=== PATIENT | female | born 1990 | race American Indian/Alaskan Native ===

== ENCOUNTER 2017-12-04 14:59 | Emergency (ER) | payer OTHER ==
[2017-12-04 15:31] LABS: Amorphous Crystals,Urine Few; Bilirubin,Urine NEG (Negative); Blood,Urine NEG (Negative); Mucus,Urine 3+ /HPF; Nitrite,Urine NEG (Negative)
[2017-12-04 15:32] LABS: Color,Urine Yellow (Yellow); Protein,Urine >500 mg/dL (Negative)
[2017-12-04 15:37] LABS: HCG Qualitative,Urine Positive (Negative)
[2017-12-04] MEDS ORDERED: ZOFRAN IV ONE ×2 (16:18→21:08)
[2017-12-04] MEDS ORDERED: NACL 0.9% 1000 ML 1,000 ML IV ONE (16:19)
--- NOTE | 2017-12-04 16:22 | Emergency Department Report ---
Blank Doc - Documentation Documentation: 27-year-old female 3 para 2, presented to the ER with chief complaint of nausea vomiting and diarrhea for the last 3 days patient stated that she is not able to keep anything down. Patient also stated that she's been having vaginal spotting. Last regular period was in the beginning of October 2017. She also stated that she is having some abdominal cramping. On exam patient looks moderately dehydrated, heart sounds normal, lungs clear bilaterally, abdomen is soft nontender, no rebound tenderness or guarding. Labs, ultrasound , IV fluids, Zofran ordered.
[2017-12-04 16:48] LABS: Hematocrit 35.3 % (30.3-42.9); Mean Corpuscular HGB Conc 34 % (30-34); Mean Corpuscular Hemoglobin 27 pg (28-32); Mean Corpuscular Volume 81 fl (79-97); Platelet Count 188 K/mm3 (140-440); Red Blood Count 4.37 M/mm3 (3.65-5.03); Red Cell Distribution Width 14.1 % (13.2-15.2)
[2017-12-04 16:52] LABS: Basophils % (Auto) 0.5 % (0.0-1.8); Lymphocytes # (Auto) 0.4 K/mm3 (1.2-5.4); Lymphocytes % (Auto) 7.6 % (13.4-35.0); Monocytes # (Auto) 0.3 K/mm3 (0.0-0.8); Monocytes % (Auto) 6.4 % (0.0-7.3)
[2017-12-04 16:58] LABS: BUN/Creatinine Ratio 15; Blood Urea Nitrogen 9 mg/dL (7-17); Hemolysis Index 4
[2017-12-04 16:59] LABS: INR 1.11 (0.87-1.13)
[2017-12-04 17:00] LABS: Partial Thromboplastin Time 30.6 Sec. (24.2-36.6)
[2017-12-04] MEDS ORDERED: D5NS 1,000 ML IV SCH (19:00)
--- NOTE | 2017-12-04 19:22 | Ultrasound Report ---
FINAL REPORT PROCEDURE: US OB TRANSVAGINAL and transabdominal TECHNIQUE: Real-time transabdominal and transvaginal sonography of the uterus, placenta, amniotic fluid, adnexa, and fetus was performed with image documentation. Measurements were obtained to determine age/size. M-mode Doppler was used to document heartbeat. CPT 86708 and 21503 HISTORY: Hyperemesis COMPARISON: No prior studies are available for comparison. FINDINGS: ADDITIONAL GESTATION: None. CRL: 14.5 mm, which corresponds to a gestational age of: 5 weeks, 6 days. Yolk Sac: Normal. Embryonic Cardiac Activity: 86 beats per minute Gestational Sac: Normal. Amniotic fluid: Normal. Cervix: Normal. Right Ovary: Normal. Left Ovary: Normal. Estimated delivery date: 07/31/2018, based on crown-rump length Uterus and adnexa: Normal. IMPRESSION: 1. Single live intrauterine gestation at approximately 5 weeks, 6 days. 2. EDC by US 07/31/2018, based on crown-rump length 3. Complete anatomic survey at 18-20 weeks suggested.
--- NOTE | 2017-12-04 19:22 | Ultrasound Report ---
FINAL REPORT PROCEDURE: US OB TRANSVAGINAL and transabdominal TECHNIQUE: Real-time transabdominal and transvaginal sonography of the uterus, placenta, amniotic fluid, adnexa, and fetus was performed with image documentation. Measurements were obtained to determine age/size. M-mode Doppler was used to document heartbeat. CPT 30623 and 28491 HISTORY: Hyperemesis COMPARISON: No prior studies are available for comparison. FINDINGS: ADDITIONAL GESTATION: None. CRL: 14.5 mm, which corresponds to a gestational age of: 5 weeks, 6 days. Yolk Sac: Normal. Embryonic Cardiac Activity: 86 beats per minute Gestational Sac: Normal. Amniotic fluid: Normal. Cervix: Normal. Right Ovary: Normal. Left Ovary: Normal. Estimated delivery date: 07/31/2018, based on crown-rump length Uterus and adnexa: Normal. IMPRESSION: 1. Single live intrauterine gestation at approximately 5 weeks, 6 days. 2. EDC by US 07/31/2018, based on crown-rump length 3. Complete anatomic survey at 18-20 weeks suggested. PROCEDURE: TECHNIQUE: HISTORY: COMPARISON: FINDINGS: IMPRESSION:
--- NOTE | 2017-12-04 20:17 | Emergency Department Report ---
ED HPI - General Chief complaint: Nausea/Vomiting/Diarrhea Stated complaint: EMESIS Time Seen by Provider: 12/04/17 16:15 Source: patient Mode of arrival: Ambulatory Limitations: No Limitations - History of Present Illness Initial comments: 27-year-old female currently with LMP 10/22/2017 presents to the hospital complaining of nausea, vomiting, and decreased by mouth intake 2 days. Patient has not received care. This is her third with no previous miscarriages or abortions. Mild upper achy abdominal pain patient denies cramping, vaginal bleeding, dysuria, or fever. - Related Data Previous Rx's Medication Instructions Recorded Last Taken Type Ondansetron [Zofran Odt] 4 mg PO Q8HR PRN #20 tab.rapdis 12/04/17 Unknown Rx Allergies Allergy/AdvReac Type Severity Reaction Status Date / Time No Known Allergies Allergy Unverified 12/04/17 15:02 ED Review of Systems ROS: Stated complaint: EMESIS Other details as noted in HPI Comment: All other systems reviewed and negative Other: Constitutional: No fevers chills Eyes: No eye pain visual changes ENT: No ear pain or throat pain Neck: Denies pain Respiratory: Denies cough wheezing shortness of breath Cardiovascular: Denies chest pain, palpitations, syncope GI: As per HPI : Denies dysuria Musculoskeletal: Denies back pain, joint swelling Skin: Denies rash, lesions, erythema Neurologic: Denies headache, numbness, weakness Psychiatric: Denies suicidal ideation, hallucinations ED Past Medical Hx - Past Medical History Previous Medical History?: Yes Additional medical history: Vaginal dleivery x 2 - Surgical History Past Surgical History?: No - Social History Smoking Status: Current Some Day Smoker Substance Use Type: Alcohol, Marijuana - Medications Home Medications: Home Medications Medication Instructions Recorded Confirmed Last Taken Type Ondansetron [Zofran Odt] 4 mg PO Q8HR PRN #20 tab.rapdis 12/04/17 Unknown Rx ED Physical Exam - General Limitations: No Limitations - Other Other exam information: General: No limitations, patient is alert in no acute distress Head exam: Atraumatic, normocephalic Eyes exam: Normal appearance ENT: Dried mucus number Neck exam: Normal inspection, full range of motion, no meningismus nontender Respiratory exam: Clear to auscultation bilateral, no wheezes, rales, crackles Cardiovascular: Normal rate and rhythm, normal heart sounds Abdomen: Soft, nondistended, and nontender, with normal bowel sounds, no rebound, or guarding Extremity: Full range of motion normal inspection no deformity Back: Normal Inspection, full range of motion, no tenderness Neurologic: Alert, oriented x3, cranial nerves intact, no motor or sensory deficit Psychiatric: normal affect, normal mood Skin: Warm, dry, intact ED Course Vital Signs 12/04/17 12/04/17 12/04/17 15:03 17:38 20:49 Temperature 97.8 F Pulse Rate 73 71 Respiratory 20 16 18 Rate Blood Pressure 119/65 Blood Pressure 114/64 [Left] O2 Sat by Pulse 100 100 Oximetry ED Medical Decision Making - Lab Data Result diagrams: 12/04/17 16:23 12/04/17 16:23 Lab Results 12/04/17 12/04/17 12/04/17 Range/Units 15:18 16:23 16:23 WBC 5.5 (4.5-11.0) K/mm3 RBC 4.37 (3.65-5.03) M/mm3 Hgb 12.0 (10.1-14.3) gm/dl Hct 35.3 (30.3-42.9) % MCV 81 (79-97) fl MCH 27 L (28-32) pg MCHC 34 (30-34) % RDW 14.1 (13.2-15.2) % Plt Count 188 (140-440) K/mm3 Lymph % (Auto) 7.6 L (13.4-35.0) % [place] % (Auto) 6.4 (0.0-7.3) % Eos % (Auto) 0.0 (0.0-4.3) % Baso % (Auto) 0.5 (0.0-1.8) % Lymph # 0.4 L (1.2-5.4) K/mm3 [place] # 0.3 (0.0-0.8) K/mm3 Eos # 0.0 (0.0-0.4) K/mm3 Baso # 0.0 (0.0-0.1) K/mm3 Seg Neutrophils % 85.5 H (40.0-70.0) % Seg Neutrophils # 4.6 (1.8-7.7) K/mm3 PT 14.9 (12.2-14.9) Sec. INR 1.11 (0.87-1.13) APTT 30.6 (24.2-36.6) Sec. Sodium (137-145) mmol/L Potassium (3.6-5.0) mmol/L Chloride (98-107) mmol/L Carbon Dioxide (22-30) mmol/L Anion Gap mmol/L BUN (7-17) mg/dL Creatinine (0.7-1.2) mg/dL Estimated GFR ml/min BUN/Creatinine Ratio % Glucose (65-100) mg/dL Calcium (8.4-10.2) mg/dL HCG, Quant (0-4) mIU/mL Urine Color Yellow (Yellow) Urine Turbidity Hazy (Clear) Urine pH 6.0 (5.0-7.0) Ur Specific Man 1.029 (1.003-1.030) Urine Protein >500 (Negative) mg/dL Urine Glucose (UA) Neg (Negative) mg/dL Urine Ketones 20 (Negative) mg/dL Urine Blood Neg (Negative) Urine Nitrite Neg (Negative) Urine Bilirubin Neg (Negative) Urine Urobilinogen 2.0 (<2.0) mg/dL Ur Leukocyte Esterase Neg (Negative) Urine WBC (Auto) 4.0 (0.0-6.0) /HPF Urine RBC (Auto) 2.0 (0.0-6.0) /HPF U Epithel Cells (Auto) 6.0 (0-13.0) /HPF Amorphous Crystals Few Urine Mucus 3+ /HPF Urine HCG, Qual Positive A (Negative) Blood Type 12/04/17 12/04/17 12/04/17 Range/Units 16:23 16:23 16:23 WBC (4.5-11.0) K/mm3 RBC (3.65-5.03) M/mm3 Hgb (10.1-14.3) gm/dl Hct (30.3-42.9) % MCV (79-97) fl MCH (28-32) pg MCHC (30-34) % RDW (13.2-15.2) % Plt Count (140-440) K/mm3 Lymph % (Auto) (13.4-35.0) % [place] % (Auto) (0.0-7.3) % Eos % (Auto) (0.0-4.3) % Baso % (Auto) (0.0-1.8) % Lymph # (1.2-5.4) K/mm3 [place] # (0.0-0.8) K/mm3 Eos # (0.0-0.4) K/mm3 Baso # (0.0-0.1) K/mm3 Seg Neutrophils % (40.0-70.0) % Seg Neutrophils # (1.8-7.7) K/mm3 PT (12.2-14.9) Sec. INR (0.87-1.13) APTT (24.2-36.6) Sec. Sodium 138 (137-145) mmol/L Potassium 3.8 (3.6-5.0) mmol/L Chloride 98.7 (98-107) mmol/L Carbon Dioxide 23 (22-30) mmol/L Anion Gap 20 mmol/L BUN 9 (7-17) mg/dL Creatinine 0.6 L (0.7-1.2) mg/dL Estimated GFR > 60 ml/min BUN/Creatinine Ratio 15 % Glucose 87 (65-100) mg/dL Calcium 9.0 (8.4-10.2) mg/dL HCG, Quant 59424 H (0-4) mIU/mL Urine Color (Yellow) Urine Turbidity (Clear) Urine pH (5.0-7.0) Ur Specific [place] (1.003-1.030) Urine Protein (Negative) mg/dL Urine Glucose (UA) (Negative) mg/dL Urine Ketones (Negative) mg/dL Urine Blood (Negative) Urine Nitrite (Negative) Urine Bilirubin (Negative) Urine Urobilinogen (<2.0) mg/dL Ur Leukocyte Esterase (Negative) Urine WBC (Auto) (0.0-6.0) /HPF Urine RBC (Auto) (0.0-6.0) /HPF U Epithel Cells (Auto) (0-13.0) /HPF Amorphous Crystals Urine Mucus /HPF Urine HCG, Qual (Negative) Blood Type A POSITIVE - Radiology Data Radiology results: report reviewed /transvaginal ultrasound: 5 week 6 day IUP heart tones 86 - Medical Decision Making Nausea vomiting in Controlled in the ED with Zofran Patient received 1 L normal saline and 1 L D5NS as for hydration Symptoms improved and controlled prior to discharge - Differential Diagnosis hyperemesis, dehydration, UTI Critical care attestation.: If time is entered above; I have spent that time in minutes in the direct care of this critically ill patient, excluding procedure time. ED Disposition Clinical Impression: Nausea and vomiting during , 5 weeks gestation of Disposition: TO HOME OR SELFCARE Is pt being admited?: No Does the pt Need Aspirin: No Condition: Stable Instructions: Hyperemesis Gravidarum (ED) Additional Instructions: Ultrasound confirms you are 5 weeks and 6 days . Take nausea medication as needed in the vitamins daily. Follow-up with the PUBLICITY AGENT doctor provided with the PUBLICITY AGENT doctor of your choice. Prescriptions: Ondansetron [Zofran Odt] 4 mg PO Q8HR PRN #20 tab.rapdis PRN Reason: Nausea And Vomiting Referrals: JONO TAN MD [Staff Physician] - 3-5 Days Time of Disposition: 22:05
[2017-12-04 20:50] VITALS: BP 114/64
[2017-12-04] MEDS ORDERED: ZOFRAN ONE (20:52)
== END 2017-12-04 22:28 | disposition home or self-care (01) ==
LOC: ED 14:59
DX: O21.9 Vomiting of pregnancy, unspecified (principal); F17.200 Nicotine dependence, unspecified, uncomplicated; F12.10 Cannabis abuse, uncomplicated; Z3A.01 Less than 8 weeks gestation of pregnancy
CPT/HCPCS: 36415; 76801; 76817; 80048; 81001; 81025; 84702; 85025; 85610; 85730; 86900; 86901; 96361; 96374; 96376; 99284; J2405; J7030; J7042

== ENCOUNTER 2017-12-09 09:31 | Inpatient (IN) | payer OTHER ==
[2017-12-09 10:31] LABS: Basophils % (Auto) 0.9 % (0.0-1.8); Eosinophils % (Auto) 0.3 % (0.0-4.3); Hematocrit 35.5 % (30.3-42.9); Hemoglobin 12.6 gm/dl (10.1-14.3); Lymphocytes # (Auto) 0.6 K/mm3 (1.2-5.4); Lymphocytes % (Auto) 17.4 % (13.4-35.0); Mean Corpuscular HGB Conc 35 % (30-34); Mean Corpuscular Hemoglobin 28 pg (28-32); Mean Corpuscular Volume 79 fl (79-97); Monocytes # (Auto) 0.6 K/mm3 (0.0-0.8); Monocytes % (Auto) 15.7 % (0.0-7.3); Platelet Count 170 K/mm3 (140-440); Red Blood Count 4.49 M/mm3 (3.65-5.03); Red Cell Distribution Width 13.5 % (13.2-15.2)
[2017-12-09 10:45] LABS: Alanine Aminotransferase 8 units/L (7-56); Albumin 4.5 g/dL (3.9-5); BUN/Creatinine Ratio 17; Blood Urea Nitrogen 10 mg/dL (7-17); Hemolysis Index 1
[2017-12-09] MEDS ORDERED: ZOFRAN IV ONE ×2 (12:15→13:20)
[2017-12-09] MEDS ORDERED: NACL 0.9% 1000 ML 1,000 ML IV ONE (12:15)
[2017-12-09] MEDS ORDERED: KCL 10MEQ/100ML 10 MEQ/100 ML BAG IV ONE (12:16)
[2017-12-09] MEDS ORDERED: NACL 0.9% 1000 ML 1,000 ML ONE (12:17)
[2017-12-09] MEDS ORDERED: ZOFRAN ONE (12:17)
[2017-12-09] MEDS ORDERED: KCL 10 MEQ in NACL 0.9% 100 ML IV ONE (12:45)
[2017-12-09] MEDS ORDERED: BENADRYL IV ONE (13:26)
[2017-12-09] MEDS ORDERED: D5NS 1,000 ML IV ONE (13:29)
--- NOTE | 2017-12-09 13:29 | Emergency Department Report ---
ED N/V/D HPI - General Chief complaint: Nausea/Vomiting/Diarrhea Stated complaint: N&V WITH CP Time Seen by Provider: 12/09/17 12:12 Source: patient Mode of arrival: Ambulatory Limitations: No Limitations - History of Present Illness Initial comments: This is a 27-year-old female nontoxic, well nourished in appearance, no acute signs of distress presents to the ED with c/o of nausea and vomiting x1 week. Patient stated she was here on 12/04/2017 and was diagnosed with 5 weeks normal and nausea/vomiting and was prescribed Zofran with no refill. Patient stated that every time she vomits she gets chest aching. Patient denies any fever, chills, headache, stiff neck, nausea, vomiting, chest pain, shortness of breathe, numbness, tingling. Patient denies any vaginal bleeding or discharge. Patient denies any allergies or PMH. MD complaint: nausea, vomiting -: week(s) (1) Description of Vomiting: food contents Associated Abdominal Pain: No Radiation: none Severity: mild Consistency: constant Improves with: none Worsens with: none Associated Symptoms: denies other symptoms. denies: myalgias, chest pain, cough , diaphoresis, fever/chills, headaches, loss of appetite, malaise, nausea/ vomiting, rash, dysuria, shortness of breath, syncope, weakness - Related Data Previous Rx's Medication Instructions Recorded Last Taken Type Ondansetron [Zofran Odt] 4 mg PO Q8HR PRN #20 tab.rapdis 12/04/17 Unknown Rx Vit-Fe Fumar-FA [ 1 tab PO QDAY #30 tablet 12/04/17 Unknown Rx Vitamin] Allergies Allergy/AdvReac Type Severity Reaction Status Date / Time No Known Allergies Allergy Unverified 12/04/17 15:02 ED Review of Systems ROS: Stated complaint: N&V WITH CP Other details as noted in HPI Constitutional: denies: chills, fever Eyes: denies: eye pain, eye discharge, vision change ENT: denies: ear pain, throat pain Respiratory: denies: cough, shortness of breath, wheezing Cardiovascular: denies: chest pain, palpitations Endocrine: no symptoms reported Gastrointestinal: nausea, vomiting. denies: abdominal pain, diarrhea Genitourinary: denies: urgency, dysuria, discharge Musculoskeletal: denies: back pain, joint swelling, arthralgia Skin: denies: rash, lesions Neurological: denies: headache, weakness, paresthesias Psychiatric: denies: anxiety, depression Hematological/Lymphatic: denies: easy bleeding, easy bruising ED Past Medical Hx - Past Medical History Previous Medical History?: Yes Additional medical history: Vaginal dleivery x 2 - Surgical History Past Surgical History?: No - Social History Smoking Status: Former Smoker Substance Use Type: Alcohol, Prescribed - Medications Home Medications: Home Medications Medication Instructions Recorded Confirmed Last Taken Type Ondansetron [Zofran Odt] 4 mg PO Q8HR PRN #20 tab.rapdis 12/04/17 Unknown Rx Vit-Fe Fumar-FA [ 1 tab PO QDAY #30 tablet 12/04/17 Unknown Rx Vitamin] ED Physical Exam - General Limitations: No Limitations General appearance: alert, in no apparent distress - Head Head exam: Present: atraumatic, normocephalic - Eye Eye exam: Present: normal appearance, PERRL, EOMI Pupils: Present: normal accommodation - ENT ENT exam: Present: mucous membranes moist - Neck Neck exam: Present: normal inspection, full ROM. Absent: tenderness, meningismus, lymphadenopathy, thyromegaly - Respiratory Respiratory exam: Present: normal lung sounds bilaterally. Absent: respiratory distress, wheezes, rales, rhonchi, stridor, chest wall tenderness, accessory muscle use, decreased breath sounds, prolonged expiratory - Cardiovascular Cardiovascular Exam: Present: regular rate, normal rhythm, normal heart sounds. Absent: bradycardia, tachycardia, irregular rhythm, systolic murmur, diastolic murmur, rubs, gallop - GI/Abdominal GI/Abdominal exam: Present: soft, normal bowel sounds. Absent: distended, tenderness, guarding, rebound, rigid, diminished bowel sounds - Expanded GI/Abdominal Exam Expanded GI/Abdominal exam: Absent: psoas sign, obturator sign, heel tap sign, Oakes's sign, Rovsing's sign, tenderness at [place]'s [place], ascites - Rectal Rectal exam: Present: deferred - Extremities Exam Extremities exam: Present: normal inspection, full ROM, normal capillary refill. Absent: tenderness, pedal edema, joint swelling, calf tenderness - Back Exam Back exam: Present: normal inspection, full ROM. Absent: tenderness, CVA tenderness (R), CVA tenderness (L), muscle spasm, paraspinal tenderness, vertebral tenderness, rash noted - Neurological Exam Neurological exam: Present: alert, oriented X3, CN II-XII intact, normal gait, reflexes normal - Psychiatric Psychiatric exam: Present: normal affect, normal mood - Skin Skin exam: Present: warm, dry, intact, normal color. Absent: rash ED Course Vital Signs 12/09/17 10:03 Temperature 97.9 F Pulse Rate 67 Respiratory 16 Rate Blood Pressure 118/67 O2 Sat by Pulse 100 Oximetry - Reevaluation(s) Reevaluation #1: 12/09/17 13:41 Patient is speaking in full sentences with no signs of distress noted. - Consultations Consultation #1: 12/09/17 13:41 Patient has been consulted with Dr. Prieto about patient history, physical exam, and labs and agrees to ED plan of care and with possible admission for unrelieved nausea/vomiting. Consultation #2: 12/09/17 14:24 Dr. Gilliam (My outboard technician) was conulsted about patient history, physical exam, and lab and accepts patient to his services. ED Medical Decision Making - Lab Data Result diagrams: 12/09/17 10:14 12/09/17 10:14 - Medical Decision Making This is a 27-year-old female that presents with hyperemesis gravidarum and UTI. Patient is stable and was examined by me. Patient is currently about 7 weeks . Patient received 1 L normal saline, D5 NS 1 liter, Zofran 8 mg IV, and Benadryl 25 mg IV with no relief. Patient denies any abdominal pain or distention. Abdominal assessment is normal soft and nontender. No abdominal distention. Patient was consulted with Dr. Prieto and Dr. Gilliam. Dr. Gilliam except the patient to her services. Patient received 1 g of Rocephin IV. Pending urine culture. At time of admission the patient does not seem toxic or ill in appearance. No acute signs of distress noted. Patient agrees to admission treatment plan of care. No further questions noted by the patient. Critical care attestation.: If time is entered above; I have spent that time in minutes in the direct care of this critically ill patient, excluding procedure time. ED Disposition Clinical Impression: Hyperemesis gravidarum UTI (urinary tract infection) Qualifiers: Urinary tract infection type: site unspecified Hematuria presence: with hematuria Qualified Code(s): N39.0 - Urinary tract infection, site not specified ; R31.9 - Hematuria, unspecified; R31.9 - Hematuria, unspecified Disposition: OP ADMIT IP TO THIS HOSP Is pt being admited?: Yes Condition: Stable Referrals: PRIMARY CARE,MD [Primary Care Provider] - 3-5 Days
[2017-12-09 13:58] LABS: Bacteria,Urine 4+ /HPF (Negative); Bilirubin,Urine NEG (Negative); Blood,Urine NEG (Negative); Color,Urine Yellow (Yellow); Mucus,Urine 3+ /HPF; Nitrite,Urine POS (Negative)
[2017-12-09] MEDS ORDERED: ROCEPHIN/NS 1 GM/50 ML 1 GM/50 ML BAG IV ONE (14:16)
[2017-12-09] MEDS ORDERED: KCL 20 MEQ in NACL 0.9% 250ML 250 ML IV SCH (15:00)
[2017-12-09] MEDS ORDERED: KCL 10MEQ/100ML 10 MEQ/100 ML BAG IV SCH (15:00)
[2017-12-09] MEDS ORDERED: cefTRIAXone 1 GM in NACL 0.9% 20 ML IV ONE (15:00)
[2017-12-09 15:44] LABS: BUN/Creatinine Ratio 18; Blood Urea Nitrogen 9 mg/dL (7-17); Calcium 8.4 mg/dL (8.4-10.2); Hemolysis Index 7
--- NOTE | 2017-12-09 15:49 | History and Physical Report ---
History of Present Illness Date of examination: 12/09/17 Date of admission: 12/09/17 14:23 Chief complaint: 27 yo at 7 wk 5d with EDC of 07/23/2018 given by a clinic but no care yet. Having severe N&V and associated chest pain that sounds like reflux to me. Admitted through ER and is very dehydrated, hypokalemic and is in pain from the probable esophagitis. History of present illness: Several weeks of severe N&V not able to keep anything down at all with chest pain from retching. Past History Past Medical History: other (non- blood transfusion after 1st delivery) Past Surgical History: no surgical history Family/Genetic History: none Social history: lives with family. denies: smoking, alcohol abuse, prescription drug abuse, IV drug use - Obstetrical History Expected Date of Delivery: 07/23/18 Actual Gestation: 7 Week(s) 5 Day(s) : 3 Para: 2 Hx # Term Pregnancies: 2 Number of Living Children: 2 Medications and Allergies Allergies Allergy/AdvReac Type Severity Reaction Status Date / Time No Known Allergies Allergy Unverified 12/04/17 15:02 Home Medications Medication Instructions Recorded Confirmed Last Taken Type Ondansetron [Zofran Odt] 4 mg PO Q8HR PRN #20 tab.rapdis 12/04/17 Unknown Rx Vit-Fe Fumar-FA [ 1 tab PO QDAY #30 tablet 12/04/17 Unknown Rx Vitamin] Active Meds: Active Medications Dextrose/Sodium Chloride (D5ns) 1,000 mls @ 150 mls/hr IV DIRECT ONE Stop: 12/09/17 20:08 Last Admin: 12/09/17 14:27 Dose: 150 mls/hr Dextrose/Lactated Ringer's (D5lr) 1,000 mls @ 500 mls/hr IV DIRECT TIFFANY Stop: 12/10/17 16:59 Dextrose/Lactated Ringer's (D5lr) 1,000 mls @ 150 mls/hr IV DIRECT TIFFANY Potassium Chloride 20 meq/ (Sodium Chloride) 260 mls @ 130 mls/hr IV ONCE.ED TIFFANY Multivitamins/Iron/Calcium ( Vitamin) 1 each PO QDAY TIFFANY Ondansetron HCl (Zofran) 4 mg IV Q6H PRN PRN Reason: N/V unrelieved by Reglan Promethazine HCl (Phenergan) 25 mg TN Q6H TIFFANY - Vital Signs Vital signs: Vital Signs Temp Pulse Resp BP Pulse Ox 97.9 F 67 16 118/67 100 12/09/17 10:03 12/09/17 10:03 12/09/17 10:03 12/09/17 10:03 12/09/17 10:03 Temp Pulse Resp BP Pulse Ox 97.9 F 57 L 18 127/79 99 12/09/17 10:03 12/09/17 15:06 12/09/17 15:06 12/09/17 15:06 12/09/17 15:06 - Physical Exam Breasts: Positive: deferred Cardiovascular: Regular rate Lungs: Positive: Clear to auscultation Abdomen: Positive: soft Extremities: Positive: normal Results Result Diagrams: 12/09/17 10:14 12/09/17 14:48 Abnormal lab results 12/09/17 12/09/17 12/09/17 Range/Units 10:14 10:14 13:38 WBC 3.6 L (4.5-11.0) K/mm3 MCHC 35 H (30-34) % [place] % (Auto) 15.7 H (0.0-7.3) % Lymph # 0.6 L (1.2-5.4) K/mm3 Sodium 136 L (137-145) mmol/L Potassium 3.2 L (3.6-5.0) mmol/L Chloride 96.2 L (98-107) mmol/L Carbon Dioxide 20 L (22-30) mmol/L Creatinine 0.6 L (0.7-1.2) mg/dL Alkaline Phosphatase 33 L (35-129) units/L Ur Specific [place] 1.033 H (1.003-1.030) 12/09/17 Range/Units 14:48 WBC (4.5-11.0) K/mm3 MCHC (30-34) % [place] % (Auto) (0.0-7.3) % Lymph # (1.2-5.4) K/mm3 Sodium (137-145) mmol/L Potassium (3.6-5.0) mmol/L Chloride (98-107) mmol/L Carbon Dioxide 18 L (22-30) mmol/L Creatinine 0.5 L (0.7-1.2) mg/dL Alkaline Phosphatase (35-129) units/L Ur Specific [place] (1.003-1.030) All other labs normal. Assessment and Plan - Patient Problems (1) Hyperemesis gravidarum to 22 weeks gestation, electrolyte imbalance Current Visit: Yes Status: Acute Plan to address problem: rehydrate, treat sx (2) Esophagitis Current Visit: Yes Status: Acute (3) 7 weeks gestation of Current Visit: Yes Status: Acute (4) UTI (urinary tract infection) Current Visit: Yes Status: Acute Qualifiers: Urinary tract infection type: site unspecified Hematuria presence: with hematuria Qualified Code(s): N39.0 - Urinary tract infection, site not specified; R31.9 - Hematuria, unspecified; R31.9 - Hematuria, unspecified Plan to address problem: i doubt this but will continue AB started by ER until culture
[2017-12-09] MEDS: PHENERGAN PR SCH ×2 (16:48→21:00)
[2017-12-09] MEDS ORDERED: FOLVITE 1 MG, INFUVITE 10 ML in NACL 0.9% 1000 ML 1,000 ML IV ONE (16:56)
[2017-12-09] MEDS: REGLAN IV PRN (17:52)
[2017-12-09] MEDS ORDERED: BICITRA PO ONE (18:00)
[2017-12-09] MEDS: D5LR 1,000 ML IV SCH (19:54)
[2017-12-09] MEDS: ZOFRAN IV PRN (20:14)
[2017-12-10] MEDS: PHENERGAN PR SCH ×5 (01:57→20:40)
[2017-12-10] MEDS: REGLAN IV PRN ×3 (03:38→20:40)
[2017-12-10] MEDS: D5LR 1,000 ML IV SCH ×2 (06:01→11:58)
--- NOTE | 2017-12-10 07:40 | Progress Note ---
Assessment and Plan - Patient Problems (1) Esophagitis Onset Date: ~12/09/17 Current Visit: Yes Status: Acute Plan to address problem: Continue meds as ordered Adv diet as tolerated. Dietary consult ordered (2) Hyperemesis gravidarum Onset Date: ~12/09/17 Current Visit: Yes Status: Acute Plan to address problem: Adv diet as tolerated (3) UTI (urinary tract infection) Onset Date: ~12/09/17 Current Visit: Yes Status: Acute Qualifiers: Urinary tract infection type: site unspecified Hematuria presence: with hematuria Qualified Code(s): N39.0 - Urinary tract infection, site not specified; R31.9 - Hematuria, unspecified; R31.9 - Hematuria, unspecified Plan to address problem: Macrobid po ordered. Will start if pt can tolerate po fluids Subjective - Subjective Date of service: 12/10/17 (pt states she is feeling better) Principal diagnosis: first trimester N&V; UTI; GERD Objective - Vital Signs Latest vital signs: Vital Signs Temp Pulse Resp BP BP Pulse Ox 12/10/17 05:33 99.1 F 66 18 114/64 100 12/10/17 00:41 99.1 F 71 20 115/72 99 12/09/17 21:37 98.5 F 62 20 102/69 100 12/09/17 15:06 57 L 18 127/79 99 12/09/17 10:03 97.9 F 67 16 118/67 100 Intake and Output 12/09/17 12/10/17 12/10/17 22:59 06:59 14:59 Intake Total 100 Output Total 100 Balance 0 Intake: Intake, Free Water 100 Output: Urine 100 Void 100 Other: Total, Output Amount 100 Voiding Method Toilet Weight 150 lb 161 lb - Exam Breasts: Present: deferred Abdomen: Present: normal appearance, soft, normal bowel sounds Uterus: Present: normal Extremities: Present: normal Deep Tendon Reflex Grade: Normal +2 - Labs Labs: Abnormal lab results 12/09/17 12/09/17 12/09/17 Range/Units 10:14 10:14 13:38 WBC 3.6 L (4.5-11.0) K/mm3 MCHC 35 H (30-34) % [place] % (Auto) 15.7 H (0.0-7.3) % Lymph # 0.6 L (1.2-5.4) K/mm3 Sodium 136 L (137-145) mmol/L Potassium 3.2 L (3.6-5.0) mmol/L Chloride 96.2 L (98-107) mmol/L Carbon Dioxide 20 L (22-30) mmol/L Creatinine 0.6 L (0.7-1.2) mg/dL Alkaline Phosphatase 33 L (35-129) units/L Ur Specific [place] 1.033 H (1.003-1.030) 12/09/17 Range/Units 14:48 WBC (4.5-11.0) K/mm3 MCHC (30-34) % [place] % (Auto) (0.0-7.3) % Lymph # (1.2-5.4) K/mm3 Sodium (137-145) mmol/L Potassium (3.6-5.0) mmol/L Chloride (98-107) mmol/L Carbon Dioxide 18 L (22-30) mmol/L Creatinine 0.5 L (0.7-1.2) mg/dL Alkaline Phosphatase (35-129) units/L Ur Specific [place] (1.003-1.030)
[2017-12-10] MEDS ORDERED: PRENATAL VITAMIN PO SCH (10:00)
[2017-12-10] MEDS: ZOFRAN IV PRN ×3 (10:10→22:25)
[2017-12-10] MEDS: MACROBID PO SCH ×2 (10:15→22:26)
[2017-12-10] MEDS: PROTONIX PO SCH ×2 (11:55→12:08)
[2017-12-11] MEDS: REGLAN IV PRN (02:02)
[2017-12-11] MEDS: D5LR 1,000 ML IV SCH ×2 (02:04→08:58)
[2017-12-11] MEDS: PHENERGAN PR SCH ×2 (03:19→12:00)
[2017-12-11] MEDS: ZOFRAN IV PRN ×2 (03:25→09:51)
--- NOTE | 2017-12-11 07:31 | Progress Note ---
Assessment and Plan - Patient Problems (1) Hyperemesis gravidarum Onset Date: ~12/09/17 Current Visit: Yes Status: Acute Plan to address problem: Discussed with pt out pt therapy She was concerned because she has not been able to eat. Will confirm that dietary is to see pt, consult was written . Also explained to pt she needs to establish care with a practice. She did ask for our number and address. Macrobid po tolerated. Will continue to observe and re-eval. is aware of pt. Subjective - Subjective Date of service: 12/11/17 (pt A&O; c/o vomiting X 1 last evening) Principal diagnosis: first trimester N&V; UTI; GERD Patient reports: voiding normally, other (pt is taking po hydration) Objective - Vital Signs Latest vital signs: Vital Signs Temp Pulse Resp BP Pulse Ox 12/11/17 04:00 98.7 F 78 18 114/66 12/11/17 00:00 98.7 F 66 18 121/68 12/10/17 20:00 98.9 F 63 16 139/86 12/10/17 08:30 98.9 F 72 18 125/68 99 Intake and Output 12/10/17 12/11/17 12/11/17 22:59 06:59 14:59 Intake Total 200 Output Total 1200 700 Balance -1000 -700 Intake: Intake, Free Water 200 Output: Urine 900 700 Void 900 700 Emesis 300 Other: Total, Output Amount 400 700 Voiding Method Toilet # Voids Void 1 1 Weight 360 lb 7.292 oz - Exam Breasts: Present: deferred Cardiovascular: Present: Regular rate Lungs: Present: Clear to auscultation Abdomen: Present: normal appearance, soft Extremities: Present: normal Deep Tendon Reflex Grade: Normal +2
[2017-12-11] MEDS: PROTONIX PO SCH (09:51)
[2017-12-11] MEDS: MACROBID PO SCH (10:09)
[2017-12-11 12:52] VITALS: BP 122/80
--- NOTE | 2017-12-11 14:05 | Discharge Summary ---
Providers - Providers Date of Admission: 12/09/17 14:23 Date of discharge: 12/11/17 Attending physician: RADHA ALMANZA 12/09/17 14:24 Consult to Dietitian/Nutrition [CONS] Routine Physician Instructions: Reason For Exam: Reason for Consult: hyper grav Reason for Consult: Poor oral intake Primary care physician: TRAVEL CLERK Hospitalization Condition: Good Procedures: IVF hydration, antiemetic therapy Hospital course: Patient was admitted for N/V, she received IVF hydration, antiemetic therapy. Her urine ketones cleared, then hypokalemia resolved and she gained weight during the hospitalization. She has pytalism now. Will allow home with instructions. Patient voiced understanding and agrees with plan of care. Disposition: - TO HOME OR SELFCARE - Discharge Diagnoses (1) Ptyalism Status: Acute (2) 7 weeks gestation of Status: Acute (3) Esophagitis Status: Acute (4) Hyperemesis gravidarum Status: Acute (5) UTI (urinary tract infection) Status: Acute Qualifiers: Urinary tract infection type: acute cystitis Hematuria presence: with hematuria Qualified Code(s): N30.01 - Acute cystitis with hematuria Core Measure Documentation - Palliative Care Palliative Care/ Comfort Measures: Not Applicable - Core Measures Any of the following diagnoses?: none Exam - Constitutional Vitals: Temp Pulse Resp BP Pulse Ox 98.5 F 67 18 122/80 100 12/11/17 11:13 12/11/17 11:13 12/11/17 11:13 12/11/17 11:13 12/11/17 11:13 Plan Activity: other (No sex.) Diet: clear liquids (Clear liquids for 24hours, then increase to soft diet, no dairy, no spicy foods, eat small meals frequently) Additional Instructions: Insert Promethazine suppository 1hour prior to taking your antibiotic. Drink ~74 oz of ice water a day, may put gatorade or renzo blake etc in your water. No alcoholic beverages. Follow up with: MILLI LOPEZ MD [Staff Physician] - 7 Days Prescriptions: Famotidine [Pepcid] 20 mg PO BID #30 tablet Nitrofurantoin Monohyd/M-Cryst [Macrobid 100 mg Capsule] 100 mg PO BID 7 Days # 14 capsule Ondansetron [Zofran TAB] 8 mg PO Q8HR PRN #20 tablet PRN Reason: Nausea Promethazine [Phenergan SUPPOS] 25 mg [place] QHS PRN #20 supp.rect PRN Reason: Nausea
== END 2017-12-11 14:45 | disposition home or self-care (01) | DRG 781 ==
LOC: ED 09:31 → OB 14:23
PROVIDERS: ADMIT Obstetrics & Gynecology; ATTEND Obstetrics & Gynecology
DX: O23.41 Unspecified infection of urinary tract in pregnancy, first trimester (principal); O99.611 Diseases of the digestive system complicating pregnancy, first trimester; O21.0 Mild hyperemesis gravidarum; K11.7 Disturbances of salivary secretion
CPT/HCPCS: 36415; 80048; 80053; 81001; 82010; 84443; 85025; 87076; 87086; 87186; 93005; 93010; 96365; 96375; 96376; J0696; J1200; J2405; J2765; J3411; J3480; J7030; J7042; J7050; J7121

== ENCOUNTER 2018-11-18 03:22 | Inpatient (IN) | payer SELFPAY ==
[2018-11-18 03:50] LABS: Basophils % (Auto) 0.7 % (0.0-1.8); Hemoglobin 12.3 gm/dl (10.1-14.3); Lymphocytes # (Auto) 0.7 K/mm3 (1.2-5.4); Lymphocytes % (Auto) 17.8 % (13.4-35.0); Mean Corpuscular HGB Conc 35 % (30-34); Mean Corpuscular Volume 81 fl (79-97); Monocytes # (Auto) 0.4 K/mm3 (0.0-0.8); Monocytes % (Auto) 10.1 % (0.0-7.3); Platelet Count 179 K/mm3 (140-440); Red Blood Count 4.34 M/mm3 (3.65-5.03); Red Cell Distribution Width 13.4 % (13.2-15.2)
[2018-11-18 04:07] LABS: BUN/Creatinine Ratio 20; Blood Urea Nitrogen 10 mg/dL (7-17); Calcium 9.1 mg/dL (8.4-10.2); Hemolysis Index 3
[2018-11-18] MEDS ORDERED: ZOFRAN IV ONE (06:51)
[2018-11-18] MEDS ORDERED: MORPHINE IV ONE (06:52)
[2018-11-18] MEDS ORDERED: NACL 0.9% 1000 ML 1,000 ML IV ONE ×2 (06:52→08:52)
--- NOTE | 2018-11-18 06:54 | Emergency Department Report ---
HPI - General Chief Complaint: Abdominal Pain Time Seen by Provider: 11/18/18 06:31 - HPI HPI: 28-year-old female presents to the emergency department with complaint of generalized abdominal pain, nausea and vomiting while . The patient just found out she was 2 days ago when she presented for the same symptoms. At that time she had an ultrasound and found her to be 6 weeks and 1 day. Patient says that she just moved to the area and does not have insurance and therefore does not have any [facility]. With this she is with 2 children and 2 previous abortions. She was discharged home with some Zofran but says that has not been working. She otherwise denies any other past medical history and denies any past surgical history. She denies any dysuria or vaginal bleeding or vaginal discharge. ED Past Medical Hx - Past Medical History Previous Medical History?: Yes Hx HIV: No Additional medical history: Vaginal dleivery x 2 - Surgical History Past Surgical History?: No - Social History Smoking Status: Current Every Day Smoker Substance Use Type: None - Medications Home Medications: Home Medications Medication Instructions Recorded Confirmed Last Taken Type Ondansetron [Zofran Odt] 4 mg PO Q8HR PRN #10 tab.rapdis 11/16/18 11/18/18 Unknown Rx Promethazine [Phenergan TAB] 25 mg PO Q6HR PRN #10 tab 11/16/18 11/18/18 Unknown Rx ED Review of Systems ROS: Stated complaint: ABD PAIN Other details as noted in HPI Comment: All other systems reviewed and negative Constitutional: denies: chills, fever Eyes: denies: eye pain, vision change ENT: denies: ear pain, throat pain Respiratory: denies: cough, shortness of breath Cardiovascular: denies: chest pain, palpitations Gastrointestinal: abdominal pain, nausea, vomiting Genitourinary: denies: dysuria, discharge Musculoskeletal: denies: back pain, arthralgia Skin: denies: rash, lesions Neurological: denies: headache, weakness Physical Exam - Physical Exam Vital Signs: Vital Signs 11/18/18 11/18/18 03:30 06:22 Temperature 99.2 F 99.7 F H Pulse Rate 78 85 Respiratory 18 16 Rate Blood Pressure 130/80 Blood Pressure 133/76 [Left] O2 Sat by Pulse 99 99 Oximetry Physical Exam: GENERAL: The patient is well-developed well-nourished. HEENT: Normocephalic. Atraumatic. Patient has moist mucous membranes. EYES: Extraocular motions are intact. NECK: Supple. Trachea is midline. CHEST/LUNGS: Clear to auscultation. There is no respiratory distress noted. HEART/CARDIOVASCULAR: Regular. There is no tachycardia. There is no obvious murmur. ABDOMEN: Abdomen is soft. Mild generalized tenderness to palpation of the abdomen. Patient has normal bowel sounds. There is no abdominal distention. SKIN: Skin is warm and dry. NEURO: The patient is awake, alert, and oriented. The patient is cooperative. The patient has no focal neurologic deficits. The patient has normal speech. MUSCULOSKELETAL: There is no tenderness or deformity. There is no limitation range of motion. There is no evidence of acute injury. ED Course Vital Signs 11/18/18 11/18/18 03:30 06:22 Temperature 99.2 F 99.7 F H Pulse Rate 78 85 Respiratory 18 16 Rate Blood Pressure 130/80 Blood Pressure 133/76 [Left] O2 Sat by Pulse 99 99 Oximetry ED Medical Decision Making - Lab Data Result diagrams: 11/18/18 03:39 11/18/18 03:39 - Radiology Data Radiology results: report reviewed EXAM: US OB lt; = 14 WEEKS FETUS HISTORY: Abd pain, COMPARISONS: 11/16/2018 FINDINGS: Transabdominal grayscale, color Doppler and M-mode first-trimester ultrasound A single living intrauterine is present with recorded cardiac activity of 91 beats per minute and crown-rump length of approximately 4 millimeters, which corresponds to estimated gestational age of 6 weeks 2 days and delivery date of 07/12/2019. A heterogeneous hypoechoic area adjacent to the gestational sac involves approximately 50 percent of the gestational sac surface area and measures up to 2.3 cm in greatest dimension. A functional cyst is noted in the right ovary. The right ovary measures 3.1 x 2.3 x 1.9 cm. The left ovary is not visualized. IMPRESSION: Single living intrauterine with recorded cardiac activity of 91 beats per minute (mild bradycardia) and estimated gestational age of 6 weeks 2 days corresponding to delivery date of 07/12/2019. Perigestational hemorrhage involving approximately 50 percent of the gestational sac surface area. Consider additional imaging for worsening/persistent symptoms. Transcribed By: SAVAGE Dictated By: RONEN PEREZ MD Electronically Authenticated By: RONEN PEREZ MD Signed Date/Time: 11/18/18 0987 - Medical Decision Making Patient presents to the emergency department with abdominal pain, nausea, vomiting and just recently found out that she was about 6 weeks . Labs today thus far have been mostly unremarkable. Mild hypokalemia. Beta hCG of about 19,000. However the ultrasound shows some irregularities. She does appear to have a single living intrauterine at about 6 weeks and 2 days, but the heart rate is down to about 91 which is bradycardic. There is also a mention of gestational hemorrhage involving about 50% of the gestational sac. On top of this, the patient continues to have nausea and vomiting despite Zofran and Reglan here, antiemetics in the prehospital setting, and IV fluid resuscitation. For this reason the patient will be admitted to the [facility] service and was graciously accepted by Dr. Alcala. - Differential Diagnosis , miscarriage, fibroids, hyperemesis gravidarum Critical Care Time: No Critical care attestation.: If time is entered above; I have spent that time in minutes in the direct care of this critically ill patient, excluding procedure time. ED Disposition Clinical Impression: Hyperemesis gravidarum Qualifiers: Weeks of gestation: less than 8 weeks Qualified Code(s): Z3A.01 - Less than 8 weeks gestation of Abdominal pain Qualifiers: Abdominal location: generalized Qualified Code(s): R10.84 - Generalized abdominal pain Disposition: 09 OP ADMIT IP TO THIS HOSP Is pt being admited?: Yes Condition: Fair Time of Disposition: 10:58
[2018-11-18] MEDS ORDERED: D50W (25GM) Syringe IV ONE (07:04)
--- NOTE | 2018-11-18 09:10 | Ultrasound Report ---
FINAL REPORT EXAM: US OB <= 14 WEEKS FETUS HISTORY: Abd pain, COMPARISONS: 11/16/2018 FINDINGS: Transabdominal grayscale, color Doppler and M-mode first-trimester ultrasound A single living intrauterine is present with recorded cardiac activity of 91 beats per rei te and crown-rump length of approximately 4 millimeters, which corresponds to estimated gestational a ge of 6 weeks 2 days and delivery date of 07/12/2019. A heterogeneous hypoechoic area adjacent to the gestational sac involves approximately 50 percent of the gestational sac surface area and measures u p to 2.3 cm in greatest dimension. A functional cyst is noted in the right ovary. The right ovary joslyn sures 3.1 x 2.3 x 1.9 cm. The left ovary is not visualized. IMPRESSION: Single living intrauterine with recorded cardiac activity of 91 beats per minute (mild [place] ycardia) and estimated gestational age of 6 weeks 2 days corresponding to delivery date of 07/12/2019 . Perigestational hemorrhage involving approximately 50 percent of the gestational sac surface area. Consider additional imaging for worsening/persistent symptoms.
[2018-11-18] MEDS ORDERED: REGLAN IV ONE (10:04)
[2018-11-18 11:25] LABS: Bacteria,Urine 1+ /HPF (Negative); Bilirubin,Urine NEG (Negative); Blood,Urine NEG (Negative); Color,Urine Amber (Yellow); Hyaline Casts,Urine 1 /LPF; Mucus,Urine 3+ /HPF
--- NOTE | 2018-11-18 13:30 | Short Stay Summary ---
Short Stay Documentation Date of service: 11/18/18 Narrative H&P: 28y/o @ 6+2 weeks presents to the ED with the complaint of 3 days of nausea and vomiting. The patient has been unable to tolerate liquids. She denies any vaginal bleeding. OB ultrasound significant for an IUP and findings of a subchorionic hemorrhage. - History Principal diagnosis: hyperemesis gravidarum Past Medical History: No medical history Past Surgical History: Other ( terminations x 2) Social history: single - Allergies and Medications Current Medications: Allergies No Known Allergies Allergy (Verified 11/16/18 13:38) Home Medications Medication Instructions Recorded Confirmed Last Taken Type Ondansetron [Zofran Odt] 4 mg PO Q8HR PRN #10 tab.rapdis 11/16/18 11/18/18 Unknown Rx Promethazine [Phenergan TAB] 25 mg PO Q6HR PRN #10 tab 11/16/18 11/18/18 Unknown Rx - Physical exam General appearance: no acute distress Integumentary: no rash HEENT: Atraumatic Lungs: Clear to auscultation Breasts: deferred Heart: Regular rate Gastrointestinal: normal - Hospital course Hospital course: Patient admitted from ED with hyperemesis. Received antiemetic therapy and hydration. Improvement in symptoms. U/s demonstrated a subchorionic hemorrhage. - Disposition Condition at discharge: Good Disposition: DC-01 TO HOME OR SELFCARE Short Stay Discharge Plan Activity: no restrictions Diet: regular Additional Instructions: patient needs to establish OB care [facility] [address] [place] [address] rd Prescriptions: Ondansetron [Zofran ODT TAB] 8 mg PO Q8HR #20 tab.rapdis
[2018-11-18] MEDS: D5LR 1,000 ML IV SCH ×3 (14:27→18:25)
[2018-11-18] MEDS: PHENERGAN PR SCH ×2 (14:36→20:25)
[2018-11-18] MEDS: REGLAN IV SCH ×2 (16:04→21:31)
[2018-11-18 17:08] LABS: BUN/Creatinine Ratio 12; Blood Urea Nitrogen 6 mg/dL (7-17); Calcium 7.9 mg/dL (8.4-10.2); Hemolysis Index 14
[2018-11-18 20:27] LABS: Bacteria,Urine 1+ /HPF (Negative); Bilirubin,Urine NEG (Negative); Blood,Urine NEG (Negative); Color,Urine Yellow (Yellow); Mucus,Urine FEW /HPF
[2018-11-18] MEDS: ZOFRAN IV PRN (22:17)
[2018-11-19] MEDS: TYLENOL #3 PO PRN ×2 (00:55→22:25)
[2018-11-19] MEDS: KCL IV SCH ×2 (00:57→16:21)
[2018-11-19] MEDS: D5LR IV SCH ×2 (00:57→16:21)
[2018-11-19] MEDS ORDERED: PEPCID IV ONE (01:00)
[2018-11-19] MEDS: PHENERGAN PR SCH ×3 (04:21→16:24)
[2018-11-19] MEDS: REGLAN IV SCH ×4 (04:26→22:06)
--- NOTE | 2018-11-19 08:19 | Progress Note ---
Assessment and Plan - Patient Problems (1) Hyperemesis gravidarum Onset Date: ~12/09/17 Current Visit: Yes Status: Acute Plan to address problem: continue current management Subjective - Subjective Date of service: 11/19/18 Principal diagnosis: hyperemesis gravidarum Interval history: Patient states she feels slightly better. Tolerated clears yesterday. Ultrasound findings discussed. Patient reports: no new complaints Objective - Vital Signs Vital Signs: Vital Signs - 12hr 11/18/18 11/19/18 11/19/18 20:49 00:28 00:55 Temperature 99.3 F 99.1 F Pulse Rate 81 72 Respiratory 18 18 18 Rate Blood Pressure 135/89 128/69 O2 Sat by Pulse 99 97 Oximetry 11/19/18 04:30 Temperature 99.1 F Pulse Rate 78 Respiratory 18 Rate Blood Pressure 122/81 O2 Sat by Pulse 100 Oximetry - Labs Labs: Abnormal Labs 11/18/18 11/18/18 11/18/18 03:39 03:39 03:39 WBC 3.9 L MCHC 35 H [place] % (Auto) 10.1 H Lymph # 0.7 L Seg Neutrophils % 71.4 H Sodium 132 L Potassium 3.2 L Chloride 97.6 L BUN Creatinine 0.5 L Glucose Calcium HCG, Quant [id number] H 11/18/18 16:06 WBC MCHC [place] % (Auto) Lymph # Seg Neutrophils % Sodium 135 L Potassium 3.0 L Chloride BUN 6 L Creatinine 0.5 L Glucose 141 H Calcium 7.9 L HCG, Quant Laboratory Results - last 24 hr 11/18/18 11/18/18 11/18/18 10:39 16:06 19:50 Sodium 135 L Potassium 3.0 L Chloride 103.8 Carbon Dioxide 24 Anion Gap 10 BUN 6 L Creatinine 0.5 L Estimated GFR > 60 BUN/Creatinine Ratio 12 Glucose 141 H Calcium 7.9 L Urine Color [place] Yellow Urine Turbidity Clear Clear Urine pH 6.0 7.0 Ur Specific [place] 1.027 1.014 Urine Protein 100 mg/dl 30 mg/dl Urine Glucose (UA) 50 Neg Urine Ketones 80 20 Urine Blood Neg Neg Urine Nitrite Neg Neg Urine Bilirubin Neg Neg Urine Urobilinogen 2.0 4.0 Ur Leukocyte Esterase Neg Neg Urine WBC (Auto) 3.0 2.0 Urine RBC (Auto) 5.0 2.0 U Epithel Cells (Auto) 6.0 1.0 Urine Bacteria (Auto) 1+ 1+ Hyaline Casts 1 Urine Mucus 3+ Few
[2018-11-19] MEDS: PRENATAL VITAMIN PO SCH (11:35)
[2018-11-19] MEDS: ZOFRAN IV PRN (19:11)
[2018-11-20] MEDS: REGLAN IV SCH ×4 (04:07→23:00)
[2018-11-20] MEDS: PEPCID IV SCH ×3 (04:57→23:15)
--- NOTE | 2018-11-20 07:49 | Progress Note ---
Assessment and Plan A/P HD2 hyperemesis gravidarum subchorionic bleed continue present mgt Subjective - Subjective Date of service: 11/20/18 Principal diagnosis: hyperemesis gravidarum Interval history: subchorionic bleed and hyperemesis gravidarum Patient reports: no new complaints, no loss of fluid, no vaginal bleeding Objective - Vital Signs Vital Signs: Vital Signs - 12hr 11/19/18 11/19/18 11/20/18 20:46 22:25 00:16 Temperature 99.5 F 98.7 F Pulse Rate 68 70 Respiratory 20 14 20 Rate Blood Pressure 126/78 134/73 O2 Sat by Pulse 100 96 Oximetry 11/20/18 04:47 Temperature 98.3 F Pulse Rate 56 L Respiratory 20 Rate Blood Pressure 145/95 O2 Sat by Pulse 100 Oximetry - Exam Breasts: normal Cardiovascular: Regular rate, Normal S1 Lungs: Clear to auscultation, Normal air movement Abdomen: Present: normal appearance, soft, normal bowel sounds. Absent: distention, tenderness, guarding Uterus: Present: normal, firm. Absent: bogginess, tenderness - Labs Labs: Abnormal Labs 11/18/18 11/18/18 11/18/18 03:39 03:39 03:39 WBC 3.9 L MCHC 35 H [place] % (Auto) 10.1 H Lymph # 0.7 L Seg Neutrophils % 71.4 H Sodium 132 L Potassium 3.2 L Chloride 97.6 L BUN Creatinine 0.5 L Glucose Calcium HCG, Quant 21068 H 11/18/18 16:06 WBC MCHC [place] % (Auto) Lymph # Seg Neutrophils % Sodium 135 L Potassium 3.0 L Chloride BUN 6 L Creatinine 0.5 L Glucose 141 H Calcium 7.9 L HCG, Quant
[2018-11-20] MEDS: D5LR 1,000 ML IV SCH (07:51)
[2018-11-20 09:16] LABS: Alanine Aminotransferase 8 units/L (7-56); Albumin 3.5 g/dL (3.9-5); BUN/Creatinine Ratio 8; Blood Urea Nitrogen 3 mg/dL (7-17); Calcium 8.3 mg/dL (8.4-10.2); Hemolysis Index 16
[2018-11-20] MEDS: TYLENOL #3 PO PRN ×2 (09:16→23:10)
[2018-11-20] MEDS: PHENERGAN PR SCH ×2 (09:55→18:04)
[2018-11-20] MEDS: PRENATAL VITAMIN PO SCH (09:56)
[2018-11-20] MEDS: ZOFRAN IV PRN (12:58)
[2018-11-20] MEDS: KCL 10MEQ/100ML 10 MEQ/100 ML BAG IV SCH (23:30)
[2018-11-21] MEDS: KCL 10MEQ/100ML 10 MEQ/100 ML BAG IV SCH (01:23)
[2018-11-21] MEDS: TYLENOL #3 PO PRN (05:30)
[2018-11-21] MEDS: ZOFRAN IV PRN (05:30)
[2018-11-21] MEDS: REGLAN IV SCH (06:59)
[2018-11-21] MEDS: D5LR 1,000 ML IV SCH ×2 (06:59→08:10)
--- NOTE | 2018-11-21 08:23 | Progress Note ---
Assessment and Plan - Patient Problems (1) Hyperemesis gravidarum Onset Date: ~12/09/17 Current Visit: Yes Status: Acute Plan to address problem: patient doing well discharge home Subjective - Subjective Date of service: 11/21/18 Principal diagnosis: hyperemesis gravidarum Interval history: Patient reports feeling better today. She has tolerated po intake. Patient reports: no new complaints, no loss of fluid, no vaginal bleeding Objective - Vital Signs Vital Signs: Vital Signs - 12hr 11/20/18 11/21/18 11/21/18 20:45 00:14 05:41 Temperature 98.7 F 98.6 F 98.2 F Pulse Rate 59 L 65 65 Respiratory 20 20 20 Rate Blood Pressure 121/82 118/77 135/99 O2 Sat by Pulse 100 99 100 Oximetry - Labs Labs: Abnormal Labs 11/18/18 11/18/18 11/18/18 03:39 03:39 03:39 WBC 3.9 L MCHC 35 H [place] % (Auto) 10.1 H Lymph # 0.7 L Seg Neutrophils % 71.4 H Sodium 132 L Potassium 3.2 L Chloride 97.6 L BUN Creatinine 0.5 L Glucose Calcium Alkaline Phosphatase Albumin HCG, Quant 16684 H 11/18/18 11/20/18 16:06 08:41 WBC MCHC [place] % (Auto) Lymph # Seg Neutrophils % Sodium 135 L Potassium 3.0 L 3.5 L Chloride BUN 6 L 3 L Creatinine 0.5 L 0.4 L Glucose 141 H 121 H Calcium 7.9 L 8.3 L Alkaline Phosphatase 24 L Albumin 3.5 L HCG, Quant Laboratory Results - last 24 hr 11/20/18 08:41 Sodium 137 Potassium 3.5 L Chloride 103.2 Carbon Dioxide 24 Anion Gap 13 BUN 3 L Creatinine 0.4 L Estimated GFR > 60 BUN/Creatinine Ratio 8 Glucose 121 H Calcium 8.3 L Total Bilirubin 0.50 AST 10 ALT 8 Alkaline Phosphatase 24 L Total Protein 6.4 Albumin 3.5 L Albumin/Globulin Ratio 1.2
[2018-11-21 11:06] VITALS: BP 131/89
== END 2018-11-21 10:45 | disposition home or self-care (01) | DRG 833 ==
LOC: ED 03:22 → OB 10:28
PROVIDERS: ADMIT Obstetrics & Gynecology; ATTEND Obstetrics & Gynecology
DX: O21.0 Mild hyperemesis gravidarum (principal); F17.200 Nicotine dependence, unspecified, uncomplicated; Z3A.01 Less than 8 weeks gestation of pregnancy; Z79.899 Other long term (current) drug therapy; O26.891 Other specified pregnancy related conditions, first trimester; O20.8 Other hemorrhage in early pregnancy; O99.331 Smoking (tobacco) complicating pregnancy, first trimester
CPT/HCPCS: 36415; 76801; 80048; 80053; 81001; 82962; 84702; 85025; G0378; J1720; J2270; J2405; J2765; J3480; J7030; J7121

== ENCOUNTER 2019-04-11 23:33 | Emergency (ER) | payer SELFPAY ==
[2019-04-12 00:06] VITALS: BP 121/78
[2019-04-12 00:55] LABS: Bilirubin,Urine NEG (Negative); Blood,Urine NEG (Negative); Color,Urine Yellow (Yellow); Protein,Urine <15 mg/dL mg/dL (Negative); Urobilinogen,Urine < 2.0 mg/dL (<2.0); WBC,Urine < 1.0 /HPF (0.0-6.0)
[2019-04-12 01:01] LABS: HCG Qualitative,Urine Negative (Negative)
== END 2019-04-12 01:35 | disposition left against medical advice (07) ==
LOC: ED 04-12 00:32
DX: R10.9 Unspecified abdominal pain (principal); Z53.21 Procedure and treatment not carried out due to patient leaving prior to being seen by health care provider
CPT/HCPCS: 81001; 81025

== ENCOUNTER 2021-08-13 00:27 | Emergency (ER) | payer MEDICAID ==
[2021-08-13] MEDS ORDERED: diphenhydrAMINE 50 MG/ML VIAL IV STA (03:44)
[2021-08-13] MEDS ORDERED: METOCLOPRAMIDE 10 MG/2 ML INJ IV STA (03:44)
[2021-08-13] MEDS ORDERED: SODIUM CHLORIDE 0.9% 1000 ML 1,000 ML IV ONE (03:44)
[2021-08-13] MEDS ORDERED: DICYCLOMINE 20 MG/2 ML INJ IM STA (03:55)
[2021-08-13 04:26] LABS: Basophils % (Auto) 0.5 % (0.0-1.8); Eosinophils % (Auto) 0.1 % (0.0-4.3); Hematocrit 37.5 % (30.3-42.9); Hemoglobin 13.1 gm/dl (10.1-14.3); Lymphocytes # (Auto) 0.7 K/mm3 (1.2-5.4); Lymphocytes % (Auto) 13.5 % (13.4-35.0); Mean Corpuscular HGB Conc 35 % (30-34); Mean Corpuscular Volume 82 fl (79-97); Monocytes # (Auto) 0.5 K/mm3 (0.0-0.8); Monocytes % (Auto) 9.3 % (0.0-7.3); Platelet Count 240 K/mm3 (140-440); Red Blood Count 4.58 M/mm3 (3.65-5.03); Red Cell Distribution Width 13.9 % (13.2-15.2)
[2021-08-13 04:41] LABS: Alanine Aminotransferase 12 units/L (7-56); Albumin 4.7 g/dL (3.9-5); Blood Urea Nitrogen 11 mg/dL (7-17); Calcium 9.3 mg/dL (8.4-10.2); Hemolysis Index 3
[2021-08-13 05:09] LABS: BUN/Creatinine Ratio 16
--- NOTE | 2021-08-13 06:18 | Emergency Department Report ---
ED Abdominal Pain HPI - General Chief Complaint: Abdominal Pain Stated Complaint: ABD PAIN VOMITING Time Seen by Provider: 08/13/21 04:21 Source: patient Mode of arrival: Ambulatory Limitations: No Limitations - History of Present Illness Initial Comments: 31-year-old F [place] female status post recent in March presents emergency department now complaining of being 5 weeks and currently undergoing for process having taken the pill a couple days ago and now having increased amount of cramping and pain to the lower abdomen abdomen followed by nausea and discomfort symptoms. Reports no wheezing, no chest pain palpitation no fever, chills, sweats. This was department due to the amount of cramping and having normal medication to resolve the symptoms she due to follow- up with her HAND WORKER/ provider in 4 to 5 days MD Complaint: abdominal pain -: Gradual Location: diffuse Radiation: none Migration to: no migration Severity: moderate Severity scale (0 -10): 10 Consistency: constant Improves With: nothing Worsens With: nothing Associated Symptoms: denies other symptoms. denies: vomiting, hematemesis, hematochezia, anorexia, syncope - Related Data Previous Rx's Medication Instructions Recorded Last Taken Type Ondansetron [Zofran Odt] 4 mg PO Q8HR PRN #10 tab.rapdis 11/16/18 Unknown Rx Promethazine [Phenergan] 25 mg PO Q6HR PRN #10 tab 11/16/18 Unknown Rx Ondansetron [Zofran ODT TAB] 8 mg PO Q8HR #20 tab.rapdis 11/21/18 Unknown Rx Metoclopramide [Reglan] 10 mg PO TID PRN #12 tab 04/17/21 Unknown Rx 21/Iron Fu/Folic Acid 1 each PO DAILY #30 tablet 04/17/21 Unknown Rx [ Complete [place]] Dicyclomine [Bentyl] 20 mg PO QID #20 tablet 08/13/21 Unknown Rx Ketorolac [Toradol] 10 mg PO Q6H PRN #15 tablet 08/13/21 Unknown Rx Ondansetron [Zofran ODT TAB] 8 mg PO Q12HR #14 tab.rapdis 08/13/21 Unknown Rx Allergies Allergy/AdvReac Type Severity Reaction Status Date / Time No Known Allergies Allergy Verified 11/16/18 13:38 ED Review of Systems ROS: Stated complaint: ABD PAIN VOMITING Other details as noted in HPI Comment: All other systems reviewed and negative ED Past Medical Hx - Past Medical History Hx Congestive Heart Failure: No Hx Diabetes: No Hx Asthma: No Hx COPD: No Hx HIV: No Additional medical history: Vaginal dleivery x 2 - Surgical History Past Surgical History?: No - Social History Smoking Status: Current Some Day Smoker Substance Use Type: None - Medications Home Medications: Home Medications Medication Instructions Recorded Confirmed Last Taken Type Ondansetron [Zofran Odt] 4 mg PO Q8HR PRN #10 tab.rapdis 11/16/18 11/18/18 Unknown Rx Promethazine [Phenergan] 25 mg PO Q6HR PRN #10 tab 11/16/18 11/18/18 Unknown Rx Ondansetron [Zofran ODT TAB] 8 mg PO Q8HR #20 tab.rapdis 11/21/18 Unknown Rx Metoclopramide [Reglan] 10 mg PO TID PRN #12 tab 04/17/21 Unknown Rx 21/Iron Fu/Folic Acid 1 each PO DAILY #30 tablet 04/17/21 Unknown Rx [ Complete Caplet] Dicyclomine [Bentyl] 20 mg PO QID #20 tablet 08/13/21 Unknown Rx Ketorolac [Toradol] 10 mg PO Q6H PRN #15 tablet 08/13/21 Unknown Rx Ondansetron [Zofran ODT TAB] 8 mg PO Q12HR #14 tab.rapdis 08/13/21 Unknown Rx ED Physical Exam - General Limitations: No Limitations General appearance: alert, in no apparent distress - Head Head exam: Present: atraumatic, normocephalic - Eye Eye exam: Present: normal appearance, PERRL, EOMI Pupils: Present: normal accommodation - ENT ENT exam: Present: normal exam, mucous membranes moist - Neck Neck exam: Present: normal inspection - Respiratory Respiratory exam: Present: normal lung sounds bilaterally. Absent: respiratory distress - Cardiovascular Cardiovascular Exam: Present: regular rate, normal rhythm. Absent: systolic murmur, diastolic murmur, rubs, gallop - GI/Abdominal GI/Abdominal exam: Present: soft, tenderness (Tenderness to suprapubic region with palpation. Area soft. Bowel sounds positive. No CVA tenderness is noted.), normal bowel sounds - Extremities Exam Extremities exam: Present: normal inspection - Back Exam Back exam: Present: normal inspection - Neurological Exam Neurological exam: Present: alert, oriented X3, CN II-XII intact, normal gait - Psychiatric Psychiatric exam: Present: normal affect, normal mood - Skin Skin exam: Present: warm, dry, intact, normal color. Absent: rash ED Course Vital Signs 08/13/21 08/13/21 01:09 03:38 Temperature 98.5 F Pulse Rate 82 60 Respiratory 20 16 Rate Blood Pressure 115/74 127/81 [Right] O2 Sat by Pulse 98 98 Oximetry ED Medical Decision Making - Lab Data Result diagrams: 08/13/21 04:03 08/13/21 04:03 Critical care attestation.: If time is entered above; I have spent that time in minutes in the direct care of this critically ill patient, excluding procedure time. ED Disposition Clinical Impression: Abdominal pain, Pelvic cramping Disposition: 01 HOME / SELF CARE / HOMELESS Is pt being admited?: No Does the pt Need Aspirin: No Condition: Stable Instructions: Abdominal Pain (ED) Referrals: MADELEINE POTTER MD [Primary Care Provider] - 3-5 Days
[2021-08-13 07:57] VITALS: BP 129/86
== END 2021-08-13 07:56 | disposition home or self-care (01) ==
LOC: ED 00:27
DX: O21.8 Other vomiting complicating pregnancy (principal); O26.891 Other specified pregnancy related conditions, first trimester; R10.30 Lower abdominal pain, unspecified; R10.2 Pelvic and perineal pain; Z3A.00 Weeks of gestation of pregnancy not specified
CPT/HCPCS: 36415; 80053; 83690; 84702; 85025; 96361; 96372; 96374; 96375; 99283; J0500; J1200; J2765; J7030